=== PATIENT | female | born 1980 | race Caucasian/White ===

== ENCOUNTER 2017-12-26 20:05 | Inpatient (IN) | payer BC ==
[2017-12-26] MEDS: DEXTROSE 5%-LACTATED RINGERS 1,000 ML IV SCH (21:15)
--- NOTE | 2017-12-26 21:34 | HP ---
Past Medical History - Primary Care Physician PCP:: Evert Guevara - Admission Chief Complaint: 37yo P1 with at EGA 39w6d admitted with c/o vaginal bleeding at home History of Present Illness: Pt was seen in the office today and had a vaginal exmination. She came to L&D reporting an episode of vaginal bleeding x 1 that stopped. 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: Alzheimer's, CVA, Dementia, Migraine, Multiple Sclerosis, Peripheral Neuropathy, Parkinson's, Seizure, Syncope, TIA, Vertigo, Other Cardiovascular: No: AFIB, Aneurysm, Aortic Insufficiency, Aortic Stenosis, CAD, CHF, Deep Vein Thrombosis, HTN, Hyperlipdemia, [place], Mitral Insufficiency, Mitral Stenosis, Murmur, Pulmonary Hypertension, Other Pulmonary: No: Asthma, Bronchitis, Cancer, COPD, O2 Dependent, Pneumonia, Previously Intubated, Pulmonary Embolus, Pulmonary Fibrosis, Sleep Apnea, Other Gastrointestinal: No: Ascites, Cancer, Constipation, Crohn's Disease, Diverticulitis, Diverticulosis, Esophageal Varices, Gastritis, GERD, GI Bleed, Hemorrhoids, Hiatal Hernia, Inflamatory Bowel Disease, Irritable Bowel Disease, Pancreatitis, Peptic Ulcer Disease, Ulcerative Colitis, Other Hepatobiliary: No: Cirrhosis, Cholelithiasis, Cholecystitis, Choledocholithiasis , Hepatitis A, Hepatitis B, Hepatitis C, Other Renal/: No: Renal Failure, Renal Inusuff, BPH, Cancer, Hematuria, Hemodialysis , Neurogenic Bladder, Renal Calculi, UTI, Other Reproductive: No: Ectopic , Endometriosis, Fibroids, PID, Polycystic Ovary Syndrome, Postmenopausal, Other ...Para: 1 () Heme/Onc: No: Anemia, B12 Deficiency, Bleeding Disorder, Cancer, Current Chemotherapy, Current Radiation Therapy, Hemochromatosis, Hypercoaguable State, Myeloproliferative Synd, Sickle Cell Disease, Sickle Cell Trait, Thrombocytopenia, Other Infectious Disease: No: AIDS, C-Diff, Herpes Zoster, HIV, MRSA, STD's, Tuberculosis, VREF, Other Psych: No: Addictions, Anxiety, Bipolar, Depression, Panic, Psychosis, Schizophrenia, Other Musculoskeletal: No: Bursitis, Chronic low back pain, Hemiparesis, Hemiplegia, Osteoarthritis, Paraplegia, Other Rheumatology: No: Fibromyalgia, Gout, Lupus, Rheumatoid Arthritis, Sarcoidosis, Vasculitis, Other ENT: No: Allergic Rhinitis, Sinusitis, Other Endocrine: No: [place]'s Disease, Prashanth's Disease, Diabetes Insipidus, Diabetes Mellitus, Hyperparathyroidism, Hyperthyroidism, Hypothyroidism, Osteopenia, SIADH, Other Dermatology: Yes: Other (Skin itching) - Past Surgical History Past Surgical History: Yes: Appendectomy (right breast fibroadenoma), Tonsillectomy (hx right breast fibroadenoma, excision) Hx Myomectomy: No Hx Transabdominal Cerclage: No Additional Surgical History: B/l Breast bx - Smoking History Smoking history: Never smoked Have you smoked in the past 12 months: No - Alcohol/Substance Use Hx Alcohol Use: No History of Substance Use: reports: None - Social History Usual Living Arrangement: Yes: With Spouse, With Child ADL: Independent History of Recent Travel: No Home Medications - Allergies Allergies/Adverse Reactions: Allergies Allergy/AdvReac Type Severity Reaction Status Date / Time No Known Allergies Allergy Verified 10/16/17 10:45 - Home Medications Home Medications: Ambulatory Orders Vitamins (Sjr) - 1 tab PO DAILY 12/30/15 Family Disease History - Family Disease History Family History: Denies Review of Systems - Review of Systems Constitutional: reports: Other (Contractions) Eyes: reports: No Symptoms HENT: reports: No Symptoms Neck: reports: No Symptoms Cardiovascular: reports: No Symptoms Respiratory: reports: No Symptoms Gastrointestinal: reports: No Symptoms Genitourinary: reports: Vaginal Bleeding (resolved) Breasts: reports: No Symptoms Reported Musculoskeletal: reports: No Symptoms Integumentary: reports: Lesions, Pruritis Neurological: reports: No Symptoms Endocrine: reports: No Symptoms Hematology/Lymphatic: reports: No Symptoms Psychiatric: reports: No Symptoms Pain Intensity: 3 Physical Exam - Maternity Constitutional: Yes: No Distress, Calm, Obese Eyes: Yes: WNL, Conjunctiva Clear, EOM Intact HENT: Yes: WNL, Atraumatic, Normocephalic Neck: Yes: WNL, Supple, Trachea Midline Cardiovascular: Yes: WNL, Regular Rate and Rhythm Lungs: Clear to auscultation, Normal air movement Breast(s): Yes: WNL - Abdominal Exam/OB Fundal Height: 40 Number of Fetuses: Single Presentation: Vertex Contractions: Yes Regularity: Irregular Intensity: Mild Monitor Mode: External Heart Rate (range): 145 Heart Rate Location: Midline Category: I Accelerations: Uniform Decelerations: None - Vaginal Exam/OB Vaginal Bleediing: No Speculum Exam: No Dilatation (cm): 1.5 Effacement (%): 50 Amniotic Membrane Status: Intact Presentation: Vertex/Position Station: -3 (Adequate gynecoid pelvimetry) - Physical Exam Musculoskeletal: Yes: WNL Extremities: Yes: WNL Edema: No Deep Tendon Reflex Grade: Normal +2 ...Motor Strength: WNL Psychiatric: Yes: WNL, Alert, Oriented Hemorrhage Risk Assessment - Risk Factors Medium Risk Factors: Yes: None High Risk Factors: Yes: None Risk Score: 1 Risk Level: Medium Risk Imaging - Results Ultrasound: Report Reviewed Assessment/Plan 37yo P1 with at EGA 39w6d admitted with c/o vaginal bleeding at home. The bleeding resolved now. The pt also has cholestasis of . We discussed the risks of cholestasis of at term. Fetus with Category I tracing. Adequate gynecoid pelvimetry on exam. We had land discussion re: risks , benefits, and alternatives of labor induction. I explained the options of expectant management awaiting spontaneous labor, induction of labor, and elective section. The risks of uterine tachysystole, distress, uterine rupture, need for emergency C/S, hemorrhage, infection, scarring, etc. were discussed. We also discussed the risks of meconium aspiration, shoulder dystocia, and anesthesia options. The pt requested to proceed with induction. We discussed the alternative methods of induction with Cervidil, Cytotec, Folley ballon, and pitocin. The pt prefers Cervidil followed by pitocin, if needed.
[2017-12-26 21:35] LABS: BASO % 0.1 % (0-2.0); EOS % 0.5 % (0-4.5); HEMATOCRIT 33.2 % (32.4-45.2); HEMOGLOBIN 10.7 GM/dL (10.7-15.3); LYMPH % 18.4 % (8-40); MCH 26.6 pg (25.7-33.7); MCHC 32.3 g/dl (32.0-36.0); MEAN CELL VOLUME 82.6 fl (80-96); MEAN PLT VOLUME 7.7 fl (7.5-11.1); PLATELET COUNT 313 K/MM3 (134-434); RBC 4.03 M/mm3 (3.60-5.2); RDW 15.5 % (11.6-15.6); WHITE BLOOD COUNT 11.5 K/mm3 (4.0-10.0)
[2017-12-26 21:48] LABS: INR 0.97 (0.82-1.09)
[2017-12-26 21:51] LABS: ACTIVATED PTT 23.4 SECONDS (26.9-34.4)
[2017-12-26 22:04] LABS: ALBUMIN 2.6 g/dl (3.4-5.0); ANION GAP 9 (8-16); BILIRUBIN,TOTAL 0.4 mg/dL (0.2-1.0); BLOOD UREA NITROGEN 8 mg/dL (7-18); CALCIUM 8.5 mg/dL (8.5-10.1); CHLORIDE 102 mmol/L (98-107); CO2 25 mmol/L (21-32); CREATININE 0.6 mg/dL (0.55-1.02); GLUCOSE,RANDOM 88 mg/dL (74-106); POTASSIUM 4.2 mmol/L (3.5-5.1); SGOT/AST 10 U/L (15-37); SGPT/ALT 15 U/L (12-78); SODIUM 136 mmol/L (136-145); TOT PROT 6.9 g/dl (6.4-8.2)
[2017-12-26 22:05] LABS: ALK PHOS 136 U/L (45-117)
[2017-12-26 22:08] VITALS: BMI 40.4
[2017-12-26] MEDS ORDERED: DINOPROSTONE 10 MG VAGINAL SUPPOSITORY VG ONE (22:16)
--- NOTE | 2017-12-27 08:55 | PN ---
Ante-Partal Exam - Subjective Subjective: No complaints, has some contractions Vital Signs: Vital Signs Temperature 97.7 F 12/27/17 08:00 Pulse Rate 93 H 12/27/17 08:00 Respiratory Rate 20 12/27/17 08:00 Blood Pressure 133/75 12/27/17 08:00 O2 Sat by Pulse Oximetry (%) Bleeding: No Headache: No Visual changes: No Right upper quadrant pain: No Pain (scale 1-10): 3 - Contractions Contractions: Yes Regularity: Irregular Intensity: Mild Monitor Mode: External - Exam during Labor Heart Rate: 140 Variability: Moderate Heart Rate Location: Midline Category: I Monitor Accelerations: Present Monitor Decelerations: None Amniotic Membrane Status: Intact - Intrapartum Hemorrhage Risk Medium Risk Factors: None High Risk Factors: None Risk Score: 0 Risk Level: Low Risk - Assessment/Plan Assessment/Plan: 37yo P1 with at 40w 0d admitted for labor indx. tracing Category I. Plan to remove Cervidil and start pitocin, if not in labor. We discussed the plan and pt is in agreement.
[2017-12-27] MEDS ORDERED: OXYTOCIN 20 UNITS in 0.9% NS 20 UNIT/1,000 ML INFUS.BAG IV ONE (09:50)
[2017-12-27] MEDS: OXYTOCIN 30 UNITS in 0.9% NS 30 UNIT/500 ML INFUS.BAG IVPB SCH (10:10)
[2017-12-27] MEDS ORDERED: PROMETHAZINE HCL 25 MG/1 ML VIAL ONE ×2 (13:16→19:28)
[2017-12-27] MEDS ORDERED: BUTORPHANOL TARTRATE 1 MG/ML VIAL ONE ×4 (13:16→19:27)
[2017-12-27] MEDS ORDERED: BUTORPHANOL TARTRATE 1 MG/ML VIAL IVPB ONE (13:20)
[2017-12-27] MEDS ORDERED: PROMETHAZINE HCL 25 MG/1 ML VIAL IVPB ONE (13:20)
[2017-12-27] MEDS ORDERED: BUTORPHANOL TARTRATE 1 MG/ML VIAL IVPUSH ONE (14:45)
[2017-12-27] MEDS ORDERED: PROMETHAZINE HCL 25 MG/1 ML VIAL IVPUSH ONE (14:45)
--- NOTE | 2017-12-27 16:02 | PN ---
Ante-Partal Exam - Subjective Subjective: No complaints; s/p Stadol and phenergan Vital Signs: Vital Signs Temperature 97.6 F 12/27/17 14:00 Pulse Rate 76 12/27/17 15:00 Respiratory Rate 18 12/27/17 15:00 Blood Pressure 123/75 12/27/17 15:00 O2 Sat by Pulse Oximetry (%) Bleeding: No Headache: No Visual changes: No Right upper quadrant pain: No Pain (scale 1-10): 5 - Contractions Contractions: Yes Regularity: Irregular Intensity: Moderate (2-3min) Monitor Mode: External - Exam during Labor Heart Rate: 135 Variability: Moderate Heart Rate Location: Midline Category: I Monitor Accelerations: Present Monitor Decelerations: None Amniotic Membrane Status: Intact Presentation: Vertex - Intrapartum Hemorrhage Risk Medium Risk Factors: None High Risk Factors: None Risk Score: 0 Risk Level: Low Risk - Assessment/Plan Assessment/Plan: 37yo P1 with at 40wk, admitted for labor indx, with cholestasis of . tracing is Category I and fetus does not require intervention. Pt is doing well.
[2017-12-27] MEDS ORDERED: TUBERCULIN PPD 5 TU/0.1ML SYRINGE (IN PATIENT USE ONLY) ID ONE (20:15)
--- NOTE | 2017-12-27 23:56 | PN ---
Ante-Partal Exam - Subjective Subjective: Patient reports pain with contractions Vital Signs: Vital Signs Temperature 98.1 F 12/27/17 22:00 Pulse Rate 88 12/27/17 23:00 Respiratory Rate 18 12/27/17 23:00 Blood Pressure 129/79 12/27/17 23:00 O2 Sat by Pulse Oximetry (%) Bleeding: No Headache: No Visual changes: No Right upper quadrant pain: No - Contractions Contractions: Yes Regularity: Regular Intensity: Mod/Strong Monitor Mode: External - Exam during Labor Heart Rate: 135 Variability: Moderate Category: I Monitor Accelerations: Present Monitor Decelerations: None Exam: Vaginal Dilatation (cm): 2-3 Effacement (%): 70 Amniotic Membrane Status: Intact Presentation: Vertex Station: -4 - Intrapartum Hemorrhage Risk Medium Risk Factors: None High Risk Factors: None Risk Score: 0 Risk Level: Low Risk - Assessment/Plan Assessment/Plan: 37 yo IOL for cholestasis of 1. No cervical change, will continue pitocin per protocol 2. Category I FHT 3. GBS negative 4. Patient desires IV medication for pain control. Will continue with expectant management
[2017-12-28] MEDS: DEXTROSE 5%-LACTATED RINGERS 1,000 ML IV SCH (00:30)
[2017-12-28] MEDS ORDERED: BUTORPHANOL TARTRATE 1 MG/ML VIAL ONE ×2 (04:20)
[2017-12-28] MEDS ORDERED: PROMETHAZINE HCL 25 MG/1 ML VIAL ONE (04:20)
[2017-12-28] MEDS ORDERED: BUTORPHANOL TARTRATE 1 MG/ML VIAL IVPB ONE (04:45)
[2017-12-28] MEDS ORDERED: PROMETHAZINE HCL 25 MG/1 ML VIAL IVPB ONE (04:45)
[2017-12-28] MEDS: ELECTROLYTE-148 SOLN 1,000 ML IV SCH (09:10)
[2017-12-28] MEDS ORDERED: FENTANYL/BUPIVACAINE/NS/PF - PCEA - 50 ML DISP.SYRIN EP ONE ×2 (09:22→14:02)
[2017-12-28] MEDS ORDERED: NALOXONE HCL 0.4 MG/ML VIAL IVPUSH PRN (09:22)
--- NOTE | 2017-12-28 09:23 | PN ---
Ante-Partal Exam - Subjective Subjective: Patient reports mild discomfort on pitocin Vital Signs: Vital Signs Temperature 98.2 F 12/28/17 08:00 Pulse Rate 88 12/28/17 08:00 Respiratory Rate 18 12/28/17 08:00 Blood Pressure 124/75 12/28/17 08:00 O2 Sat by Pulse Oximetry (%) Bleeding: No Headache: No Visual changes: No Right upper quadrant pain: No - Contractions Contractions: Yes Regularity: Regular Intensity: Moderate Monitor Mode: External - Exam during Labor Heart Rate: 130 Category: I Monitor Accelerations: Present Monitor Decelerations: None Exam: Vaginal Dilatation (cm): 3-4 Amniotic Membrane Status: Ruptured (@0900) Amniotic Fluid: Clear Presentation: Vertex Station: -3 - Intrapartum Hemorrhage Risk Medium Risk Factors: None High Risk Factors: None Risk Score: 0 Risk Level: Low Risk - Assessment/Plan Assessment/Plan: 37 yo IOL 1. Cervical change noted, AROM performed, clear fluid 2. GBS negative 3. Will continue pitocin per protocol 4. Category I FHT 5. Desires epidural for pain control
[2017-12-28] MEDS ORDERED: FENTANYL/BUPIVACAINE/NS/PF - PCEA - 50 ML DISP.SYRIN EP SCH ×2 (09:30→11:42)
[2017-12-28] MEDS ORDERED: OXYTOCIN 20 UNITS in 0.9% NS 20 UNIT/1,000 ML INFUS.BAG IV ONE (14:03)
[2017-12-28] MEDS ORDERED: LIDOCAINE HCL 1% PRESERVATIVE FREE - 30ML VIAL ONE (14:03)
--- NOTE | 2017-12-28 15:44 | PN ---
Progress Note (short form) - Note Progress Note: cx full 100 vx o , mr , fhr cat1
[2017-12-28] MEDS: OXYTOCIN 20 UNITS in 0.9% NS 20 UNIT/1,000 ML INFUS.BAG IV SCH ×2 (16:15→23:53)
[2017-12-28] MEDS ORDERED: oxyCODONE HCL 5 MG TABLET PO PRN (16:39)
[2017-12-28] MEDS ORDERED: METHYLERGONOVINE MALEATE 0.2 MG/1 ML AMP IM PRN (16:39)
[2017-12-28] MEDS ORDERED: BENZOCAINE 28 GM HEMORRHOIDAL OINTMENT TP PRN (16:39)
[2017-12-28] MEDS ORDERED: BISACODYL 10 MG SUPP.RECT RC PRN (16:39)
[2017-12-28] MEDS ORDERED: WITCH HAZEL 50% (TUCKS) 40 PAD/JAR PAD TP PRN (16:39)
[2017-12-28] MEDS ORDERED: BENZOCAINE 20% 57 GM BOTTLE TP PRN (16:39)
[2017-12-28 16:55] LABS: ARTERIAL BLOOD GAS BASE EXCESS -4.6 meq/l (-2-2); ARTERIAL BLOOD GAS PCO2 48.4 mmHg (35-45); ARTERIAL BLOOD GAS pH 7.28 (7.35-7.45)
[2017-12-28 17:06] LABS: ARTERIAL BLD GAS O2 SATURATION 16.9 % (90-98.9); ARTERIAL BLOOD GAS PO2 14.4 mmHg (80-100)
[2017-12-28 17:09] LABS: VENOUS PC02 40.3 mmHg (38-52); VENOUS PH 7.33 (7.32-7.42)
[2017-12-28 17:14] LABS: VENOUS PO2 19.4 mmHg (28-48)
[2017-12-28] MEDS: ACETAMINOPHEN 325 MG TABLET (FP) PO PRN (18:00)
[2017-12-28] MEDS: IBUPROFEN 600 MG TABLET (FP) PO PRN (18:00)
[2017-12-28] MEDS ORDERED: IBUPROFEN 600 MG TABLET (FP) PO ONE (18:02)
[2017-12-28] MEDS ORDERED: ACETAMINOPHEN 325 MG TABLET (FP) ONE (18:02)
[2017-12-28] MEDS: OXYTOCIN 30 UNITS in 0.9% NS 30 UNIT/500 ML INFUS.BAG IVPB SCH (18:33)
[2017-12-28] MEDS: FERROUS SO4 325 MG TABLET (FP) PO SCH (18:34)
[2017-12-29] MEDS: ACETAMINOPHEN 325 MG TABLET (FP) PO PRN ×3 (06:02→20:18)
[2017-12-29] MEDS: IBUPROFEN 600 MG TABLET (FP) PO PRN ×3 (06:02→20:18)
[2017-12-29 06:27] LABS: BASO % 0.3 % (0-2.0); EOS % 1.3 % (0-4.5); HEMATOCRIT 27.6 % (32.4-45.2); LYMPH % 22.1 % (8-40); MCH 27.2 pg (25.7-33.7); MCHC 32.7 g/dl (32.0-36.0); MEAN CELL VOLUME 83.1 fl (80-96); MEAN PLT VOLUME 7.5 fl (7.5-11.1); MONO % 6.2 % (3.8-10.2); NEUT % 70.1 % (42.8-82.8); PLATELET COUNT 274 K/MM3 (134-434); RBC 3.32 M/mm3 (3.60-5.2); RDW 16.1 % (11.6-15.6); WHITE BLOOD COUNT 10.8 K/mm3 (4.0-10.0)
--- NOTE | 2017-12-29 07:44 | PN ---
Progress Note (short form) - Note Progress Note: ppd 1 doing well, no excess vaginal bleeding CBC, BMP 12/29/17 06:12 12/26/17 21:00 Last Vital Signs Temp Pulse Resp BP Pulse Ox 98.3 F 81 18 116/62 98 12/29/17 06:00 12/29/17 06:00 12/29/17 06:00 12/29/17 06:00 12/28/17 17:00 abdomen soft, no distension, no cva uterus firm, non tender lochia mild no calf tenderness plan ambulate , plan for d/c home in am
[2017-12-29] MEDS: PRENATAL VITAMINS W/ FOLIC ACID TABLET (FP) PO SCH (09:21)
[2017-12-29] MEDS: FERROUS SO4 325 MG TABLET (FP) PO SCH ×2 (09:21→18:06)
[2017-12-29] MEDS ORDERED: DIPHTH,PERTUSS(ACELL),TET 0.5 ML DISP.SYRIN IM ONE (10:00)
[2017-12-29] MEDS ORDERED: PRENATAL VITAMINS W/ FOLIC ACID TABLET (FP) PO SCH (10:00)
[2017-12-29] MEDS: DEXTROSE 5%-LACTATED RINGERS 1,000 ML IV SCH (20:14)
[2017-12-29] MEDS: ELECTROLYTE-148 SOLN 1,000 ML IV SCH (20:15)
[2017-12-29] MEDS ORDERED: SENNOSIDES/DOCUSATE COMBO (SENNA PLUS) TABLET (UD) PO PRN (22:00)
[2017-12-30] MEDS: ACETAMINOPHEN 325 MG TABLET (FP) PO PRN (06:13)
[2017-12-30] MEDS: IBUPROFEN 600 MG TABLET (FP) PO PRN (06:14)
--- NOTE | 2017-12-30 08:51 | DS ---
Physical Exam-TROUBLE LOCATER Vital Signs: Vital Signs Temperature 97.7 F 12/29/17 22:00 Pulse Rate 110 H 12/29/17 22:00 Respiratory Rate 18 12/29/17 22:00 Blood Pressure 118/92 12/29/17 22:00 O2 Sat by Pulse Oximetry (%) 98 12/28/17 17:00 Constitutional: Yes: Well Nourished, No Distress, Calm Eyes: Yes: WNL, Conjunctiva Clear, EOM Intact HENT: Yes: WNL, Atraumatic, Normocephalic Neck: Yes: WNL, Supple, Trachea Midline Cardiovascular: Yes: WNL, Regular Rate and Rhythm Respiratory: Yes: WNL, Regular, CTA Bilaterally Gastrointestinal: Yes: WNL ...Rectal Exam: Yes: WNL Renal/: Yes: WNL ....Post : Yes: Uterus firm, Uterus non-tender, Slight lochia rubra Breast(s): Yes: WNL Musculoskeletal: Yes: WNL Extremities: Yes: WNL Edema: No Integumentary: Yes: WNL Neurological: Yes: WNL, Alert, Oriented ...Motor Strength: WNL Psychiatric: Yes: WNL, Alert, Oriented Labs: CBC, BMP 12/29/17 06:12 12/26/17 21:00 Delivery - Delivery Vaginal Delivery: Spontaneous (no cpomplication) Type of Anesthesia: Local, Epidural Episiotomy/Laceration: Vaginal Extension/lac, 2nd degree EBL (cc): 400 Delivery, Single - Stages of Labor Date 1st Stage Initiatied: 12/28/17 Time 1st Stage Initiated: 00:00 Date 2nd Stage Initiated: 12/28/17 Time 2nd Stage Initiated: 15:45 Date of Delivery: 12/28/17 Time of Delivery: 16:11 Time Placenta Delivered: 16:15 Placenta: Yes: Spontaneous - 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 Name: Misha Ivory Gender: Female Weight: 7 lb 2 oz Position: Left, OA Total Hours ROM (Hrs/Mins): 7HRS/ 10MIN - 1 Minute Total Score: 9 5 Minutes Total Score: 9 - [place] Feeding Plan Initial Plan: Elected not to breastfeed exclusively throughout hospitalization Discharge Summary Reason For Visit: LABOR Procedures: Principal: Hospital Course: no complication Condition: Good - Instructions Diet, Activity, Other Instructions: regular diet, follow up office 4 weeks, if pain, heavy bleeding , call MD Referrals: Amado Hernandez MD [Staff Physician] - Disposition: HOME - Home Medications Comprehensive Discharge Medication List: Ambulatory Orders Vitamins (Sjr) - 1 tab PO DAILY 12/30/15 Ibuprofen [Motrin -] 600 mg PO QID #28 tablet 12/28/17
[2017-12-30] MEDS: FERROUS SO4 325 MG TABLET (FP) PO SCH (09:48)
[2017-12-30] MEDS: PRENATAL VITAMINS W/ FOLIC ACID TABLET (FP) PO SCH (09:48)
[2017-12-30 13:18] VITALS: BP 130/60; PULSE 96; TEMP 97.8
== END 2017-12-30 13:20 | disposition home or self-care (01) | DRG 775 ==
LOC: JDEL 20:05 → JLDR 20:40 → J3W 12-28 18:34
PROVIDERS: ADMIT Obstetrics & Gynecology; ATTEND Obstetrics & Gynecology
PROC: 3E0P7VZ Introduction of Hormone into Female Reproductive, Via Natural or Artificial Opening (ICD-10-PCS; 2017-12-26)
PROC: 0KQM0ZZ Repair Perineum Muscle, Open Approach (ICD-10-PCS; principal; 2017-12-28)
PROC: 10E0XZZ Delivery of Products of Conception, External Approach (ICD-10-PCS; 2017-12-28)
DX: O48.0 Post-term pregnancy (principal); O70.1 Second degree perineal laceration during delivery; K83.1 Obstruction of bile duct; O26.619 Liver and biliary tract disorders in pregnancy, unspecified trimester; Z3A.40 40 weeks gestation of pregnancy; Z37.0 Single live birth
CPT/HCPCS: 36415; 36600; 59409; 80053; 82803; 85025; 85461; 85610; 85730; 86593; 86850; 86900; 86901; 86999; 90715